=== PATIENT | female | born 2005 | race Caucasian/White ===

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

== ENCOUNTER 2024-12-21 07:54 | Emergency (ER) | payer BC, SELFPAY ==
[2024-12-21] MEDS ORDERED: Diphenoxylate HCl/Atropine Tablet ONE (08:27)
[2024-12-21] MEDS ORDERED: Ketorolac Tromethamine 30 MG (1 mL) VIAL ONE (08:27)
[2024-12-21 10:03] LABS: Glucose, Urine (Dipstick) Negative (Negative); Leukocyte Negative (Negative); Protein, Urine (Dipstick) 30 mg/dL (Neg-Trace); Specific Gravity, Urine Greater/Equal 1.030 (1.005-1.030)
[2024-12-21 10:04] LABS: Pregnancy Test - Urine (BHCG) Negative (Negative); Pregu Control Background? CLEAR/WHITE (CLR/WHITE); Pregu Control Bar Appear? YES (CONTROL BAR)
[2024-12-21 10:11] LABS: Bacteria/HPF 1+ HPF (None Seen); CAUTI Indications for Culture Pelvic or flank pain; RBC/HPF 21-50 HPF (0-3); WBC/HPF 0-3 HPF (0-3)
[2024-12-21 10:12] LABS: Urine Culture Reflex No No
== END 2024-12-21 11:05 | disposition home or self-care (01) ==
LOC: MADERS 07:54
DX: K52.9 Noninfective gastroenteritis and colitis, unspecified (principal); R82.2 Biliuria; R31.29 Other microscopic hematuria; R80.9 Proteinuria, unspecified; R82.998 Other abnormal findings in urine; F17.290 Nicotine dependence, other tobacco product, uncomplicated
CPT/HCPCS: 81001; 81025; 87086; 96372; 99284; J1885; Q0162